=== PATIENT | male | born 1975 | race Caucasian/White ===

== ENCOUNTER 2022-11-05 18:23 | Emergency (ER) | payer OTHER ==
[~2022-11-05] VITALS: Ht 185.4 cm; Wt 106.6 kg
[~2022-11-05 18:23] MED LIST: ANTACID; LOSARTAN-HCTZ1 EACH PO; RXOXYACE PO
[2022-11-05 22:26] LABS: BASOPHILS ABSOLUTE AUTO 0.04 K/mm3 (0.00-0.23); BASOPHILS PERCENT AUTO 1 % (0-2); EOSINOPHILS ABSOLUTE AUTO 0.25 K/mm3 (0.00-0.68); EOSINOPHILS PERCENT AUTO 3 % (0-6); Hematocrit 38.9 % (37.0-53.0); Hemoglobin 13.9 g/dL (13.5-17.5); IMMATURE GRAN ABSOLUTE AUTO 0.02 K/mm3 (0.00-0.10); IMMATURE GRAN PERCENT AUTO 0 % (0-1); LYMPHOCYTES ABSOLUTE AUTO 2.74 K/mm3 (0.84-5.20); LYMPHOCYTES PERCENT AUTO 38 % (21-46); MONOCYTES ABSOLUTE AUTO 0.74 K/mm3 (0.16-1.47); MONOCYTES PERCENT AUTO 10 % (4-13); Mean Corpuscular HGB 33.1 pg (26.0-34.0); Mean Corpuscular HGB Conc 35.7 g/dL (31.5-36.5); Mean Corpuscular Volume 93 fL (80-100); Mean Platelet Volume 9.4 fL (9.1-12.4); NEUTROPHILS ABSOLUTE AUTO 3.46 K/mm3 (1.96-9.15); NEUTROPHILS PERCENT AUTO 48 % (41-73); Platelet Count 298 K/mm3 (150-400); RDW Coefficient Variation 13.5 % (11.7-14.2); RDW Standard Deviation 45.4 fL (35.1-46.3); White Blood Cell Count 7.25 K/mm3 (4.00-11.30)
[2022-11-05 22:43] LABS: Albumin, Blood 3.3 g/dL (3.4-5.0); Bilirubin, Total 0.2 mg/dL (0.1-1.0); Bun/Creatinine Ratio 10.8 (12.0-20.0); Calcium, Blood 8.5 mg/dL (8.5-10.1); Creatinine, Blood 1.39 mg/dL (0.60-1.20); Globulin, Blood 3.4 g/dL (2.2-4.0); Potassium, Blood 3.9 mmol/L (3.5-5.5); Total Protein, Blood 6.7 g/dL (6.4-8.2)
[2022-11-05] MEDS ORDERED: CODACE30 PO (23:11)
== END 2022-11-05 23:31 | disposition home or self-care (01) ==
LOC: ER 18:23
PROVIDERS: Student in an Organized Health Care Education/Training Program
DX: R07.81 Pleurodynia (principal); R05.3 Chronic cough; I10 Essential (primary) hypertension; K21.9 Gastro-esophageal reflux disease without esophagitis; Z88.0 Allergy status to penicillin; Z88.8 Allergy status to other drugs, medicaments and biological substances; Z79.899 Other long term (current) drug therapy; Z87.891 Personal history of nicotine dependence
CPT/HCPCS: 36415; 71101; 80053; 83690; 85025; A9270; J1885

== ENCOUNTER 2025-03-14 21:04 | Emergency (ER) | payer SELFPAY ==
[~2025-03-14] VITALS: Ht 185.4 cm; Wt 99.8 kg
[~2025-03-14 21:04] MED LIST changes: +CODACE30 PO
[2025-03-14 22:17] VITALS: BP 132/103
[2025-03-14] MEDS ORDERED: LOSA25 (23:46)
[2025-03-15] MEDS ORDERED: RX Prepack 6 Tabs Oxycodone 5mg UD ONE (00:35)
[2025-03-15] MEDS ORDERED: Trimethoprim/Sulfamethoxazole DS Tab PO ONE (00:35)
[2025-03-15] MEDS ORDERED: OxyCODONE 5 mg/Acetamin 325 mg TABLET PO ONE (00:35)
[2025-03-15] MEDS ORDERED: CIPHYDOTSU BOTHEARS (00:36)
[2025-03-15] MEDS ORDERED: Bactrim Ds Tab1 EACH PO (00:36)
== END 2025-03-15 00:45 | disposition home or self-care (01) ==
LOC: ER 21:04
DX: H60.93 Unspecified otitis externa, bilateral (principal); H66.93 Otitis media, unspecified, bilateral; Z87.891 Personal history of nicotine dependence; Z88.0 Allergy status to penicillin; Z88.8 Allergy status to other drugs, medicaments and biological substances
CPT/HCPCS: 99282; A9270